=== PATIENT | female | born 1980 | race Caucasian/White ===

== ENCOUNTER 2018-03-22 10:53 | Emergency (ER) | payer SELFPAY ==
[2018-03-22 11:00] VITALS: BMI 40.0
[2018-03-22] MEDS ORDERED: Sodium Chloride 0.9% 500 ML IV ONE (12:11)
[2018-03-22] MEDS ORDERED: Dexamethasone 4 mg/1 ml IVP STA (12:11)
[2018-03-22] MEDS ORDERED: Albuterol-Ipratrop 3 mg / 0.5 (3 ml) UD INH STA ×2 (12:14→12:15)
--- NOTE | 2018-03-22 12:26 | C.PDOC ---
History Of Present Illness 37 y/o female pt with hx of asthma presents to the ER c/o SOB for x2 days. Associated sx includes productive cough, sore throat, chest pain and chest tightness. Pt denies fever, body aches and chills. Time Seen by Provider: 03/22/18 11:21 Chief Complaint (Nursing): Chest Pain History Per: Patient History/Exam Limitations: no limitations Onset/Duration Of Symptoms: Days (x2) Current Symptoms Are (Timing): Still Present Initiating Event: Upper Respiratory Illness Past Medical History Reviewed: Historical Data, Nursing Documentation, Vital Signs Vital Signs: Last Vital Signs Temp 98.8 F 03/22/18 11:00 Pulse 69 03/22/18 11:00 Resp 20 03/22/18 11:00 BP 130/85 03/22/18 11:00 Pulse Ox 96 03/22/18 11:00 - Medical History PMH: Asthma Surgical History: Cholecystectomy Family History: States: No Known Family Hx - Social History Hx Alcohol Use: Yes Hx Substance Use: No - Immunization History Hx Tetanus Toxoid Vaccination: No Hx Influenza Vaccination: No Hx Pneumococcal Vaccination: No Review Of Systems Except As Marked, All Systems Reviewed And Found Negative. Constitutional: Negative for: Fever, Chills ENT: Positive for: Throat Pain Cardiovascular: Positive for: Chest Pain, Other (chest tightness ) Respiratory: Positive for: Cough (productive ), Shortness of Breath Musculoskeletal: Negative for: Other (body aches) Physical Exam - Physical Exam Appears: Non-toxic, No Acute Distress Skin: Warm, Dry Head: Normacephalic Throat: No Erythema, No Drooling, Other (kissing tonsil ) Neck: Normal ROM, Supple, No Other (no tenderness to anterior cervical lymph nodes) Chest: Symmetrical Cardiovascular: Rhythm Regular Respiratory: No Decreased Breath Sounds, No Rales, Rhonchi (b/l ), No Stridor, No Wheezing Gastrointestinal/Abdominal: Soft, No Tenderness, No Distention, No Guarding, No Rebound Extremity: Normal ROM (x4), No Tenderness, No Pedal Edema, No Calf Tenderness, Capillary Refill (<2 sec), No Deformity, No Swelling Neurological/Psych: Oriented x3, Normal Speech ED Course And Treatment - Laboratory Results Result Diagrams: 03/22/18 12:31 03/22/18 12:31 O2 Sat by Pulse Oximetry: 96 (RA) Pulse Ox Interpretation: Normal Medical Decision Making Medical Decision Making: Impression: URI with asthma plans: -- chem labs -- blood work -- serology -- decadron -- duoneb -- IV fluids Reassess: Patient is resting comfortably, is no longer having chest pain or shortness of breath. Patient has no risk factors for pulmonary emboli or DVT. Patient has been informed of her lab results. Clinical presentation is not suggestive of aortic dissection. Patient is being discharged home and is being advised to follow up with physician/clinic in 1-2 days. Disposition - Disposition Referrals: [facility] at [facility] [Outside] [facility] at [facility] [Outside] [facility] at [place] [Outside] Disposition: HOME/ ROUTINE Disposition Time: 14:51 Condition: IMPROVED Prescriptions: Albuterol HFA [Ventolin HFA 90 mcg/actuation (8 g)] 2 puff IH [id number] #1 puff Benzocaine/Menthol [Cepacol Sore Throat] 1 cole MM Q2 #10 cole Ibuprofen [Motrin] 600 mg PO Q6 #20 tab Instructions: Asthma in Adults, Viral Upper Respiratory Infection, Adult (DC) Forms: [employer] (Bahamian), Work Excuse - Clinical Impression Clinical Impression: Viral upper respiratory illness, Asthma - Scribe Statement The provider has reviewed the documentation as recorded by the Scribe Prince Do Provider Attestation: All medical record entries made by the Scribe were at my direction and personally dictated by me. I have reviewed the chart and agree that the record accurately reflects my personal performance of the history, physical exam, medical decision making, and the department course for this patient. I have also personally directed, reviewed, and agree with the discharge instructions and disposition.
[2018-03-22] MEDS ORDERED: Sodium Chloride 0.9% 250 ML IV ONE (12:33)
[2018-03-22] MEDS ORDERED: Albuterol-Ipratrop 3 mg / 0.5 (3 ml) UD ONE (12:33)
[2018-03-22 12:41] LABS: BASO # 0.1 K/uL (0.0-0.2); BASO % 1.4 % (0.0-2.0); EOS # 0.3 K/uL (0.0-0.7); EOS % 3.9 % (0.0-4.0); HEMOGLOBIN 12.1 g/dL (11.0-16.0); LYMPH # 2.7 K/uL (1.0-4.3); LYMPH % 30.2 % (20.0-40.0); MEAN CELL VOLUME 91.9 fL (81.0-99.0); MEAN CORPUSCULAR HEMOGLOBIN 30.4 pg (27.0-31.0); MEAN CORPUSCULAR HGB CONC 33.1 g/dL (33.0-37.0); MEAN PLATELET VOLUME 9.1 fL (7.2-11.7); MONO # 0.5 K/uL (0.0-0.8); MONO % 5.2 % (0.0-10.0); NEUT # 5.3 K/uL (1.8-7.0); NEUT % 59.3 % (50.0-75.0); RBC 3.98 Mil/uL (3.80-5.20); RED CELL DISTRIBUTION WIDTH 15.3 % (11.5-14.5); WHITE BLOOD COUNT 8.9 K/uL (4.8-10.8)
[2018-03-22 12:53] LABS: ALB/GLOB RATIO 1.3 (1.0-2.1); ALBUMIN 3.9 g/dL (3.5-5.0); ALT/SGPT 20 U/L (9-52); AST/SGOT 23 U/L (14-36); BLOOD UREA NITROGEN 7 mg/dL (7-17); CALCIUM 8.8 mg/dl (8.6-10.4); GFR NON-AFRICAN AMERICAN > 60
--- NOTE | 2018-03-22 13:10 | RAD ---
HISTORY: SOB COMPARISON: Chest x-ray performed 03/03/12 TECHNIQUE: Chest, one view. FINDINGS: Examination limited by habitus. LUNGS: No focal consolidation. Please note that chest x-ray has limited sensitivity for the detection of pulmonary masses. PLEURA: No significant pleural effusion identified. No definite pneumothorax . CARDIOVASCULAR: Heart size appears within normal limits. Mildly uncoiled aorta. No significant atherosclerotic calcification present. OSSEOUS STRUCTURES: No acute osseous abnormality identified. VISUALIZED UPPER ABDOMEN: Unremarkable. OTHER FINDINGS: None. IMPRESSION: No focal consolidation.
[2018-03-22 14:45] VITALS: BP 120/84; PULSE 117; RESP 20; TEMP 98.9
[2018-03-23 16:02] VITALS: O2SAT 96
== END 2018-03-22 14:52 | disposition home or self-care (01) ==
LOC: C.ER 10:53
DX: J06.9 Acute upper respiratory infection, unspecified (principal); J45.909 Unspecified asthma, uncomplicated
CPT/HCPCS: 71045; 80053; 84703; 85025; 87070; 87430; 87804; 96361; 96374; 99285; J1100; J7040